=== PATIENT | female | born 1955 | race Caucasian/White ===

== ENCOUNTER 2024-02-20 06:55 | Day surgery (SDC) | payer MEDICARE, MEDICAID ==
[2024-02-20] VITALS (11 sets, daily range): BP systolic 102–124; BP diastolic 63–86; PULSE 58–84; TEMP 97.9–99.1
[~2024-02-20 06:55] MED LIST: Famotidine 20 MG TAB PO SCH; LR 1,000 ML IV SCH
[2024-02-20] MEDS ORDERED: DITROPAN 5MG TAB5 MG PO (09:02)
[2024-02-20] MEDS ORDERED: MELATONIN ER10 MG PO (09:03)
[2024-02-20] MEDS ORDERED: PRAVACHOL10 MG PO (09:04)
[2024-02-20] MEDS ORDERED: ULTRAM 50MG TAB50 MG PO (09:06)
[2024-02-20] MEDS ORDERED: PRILOSEC 20MG20 MG PO (09:06)
[2024-02-20] MEDS ORDERED: NIRAVAM0.5 MG PO (09:07)
[2024-02-20] MEDS ORDERED: LEXAPRO20 MG PO (09:07)
[2024-02-20] MEDS ORDERED: MOBIC15 MG PO (09:08)
[2024-02-20] MEDS ORDERED: Lidocaine PF 2% (20 MG/ML) 5 ML VIAL ONE (09:43)
[2024-02-20] MEDS ORDERED: Midazolam 2 MG/2 ML VIAL ONE (09:56)
[2024-02-20] MEDS ORDERED: fentaNYL 50 MCG/ML 2 ML VIAL ONE (09:56)
[2024-02-20] MEDS ORDERED: Rocuronium 50 MG/5 ML Multi-Dose VIAL ONE (12:11)
[2024-02-20] MEDS ORDERED: Oxybutynin 5 MG TAB PO SCH (14:00)
[2024-02-20] MEDS ORDERED: Ondansetron 4 MG/2 ML VIAL IV PRN ×2 (14:30→16:00)
[2024-02-20] MEDS ORDERED: hydrALAZINE 20 MG/ML 1 ML VIAL IV PRN (14:30)
[2024-02-20] MEDS ORDERED: HYDROmorphone 1 MG/1 ML SYRINGE [PACU/SDC ONLY] IV PRN (14:30)
[2024-02-20] MEDS ORDERED: fentaNYL 50 MCG/ML 1 ML SYRINGE/VIAL [PACU/SDC ONLY] IV PRN (14:30)
--- NOTE | 2024-02-20 15:30 | NUR ---
Pt arrived to the floor from [place]. Pt is alert and oriented, rating pain 5/10 at this time. Pt does report that this is tolerable for her. Pts daughter is in the room with her. Pt is wheelchair bound. She also straigh caths all the time and is occasionally incontinent. I did educate on post op orders and plan of care
[2024-02-20] MEDS ORDERED: traMADol 50 MG TAB PO SCH (16:00)
[2024-02-20] MEDS ORDERED: Morphine 4 MG/ML VIAL IV PRN (16:00)
--- NOTE | 2024-02-20 16:38 | NUR ---
Pt did straight cath herself with no issues. Scheduled medications given. Her daughter did bring in some dinner for her. I did educate on room service. Dressing to the right chest is CDI with drain to bulb suction. SCDs on bilaterally.
[2024-02-20] MEDS ORDERED: XANAX 0.5MG0.5 MG PO (17:42)
--- NOTE | 2024-02-20 18:19 | NUR ---
Pt doing well, having no issues at this time. Reports that pain is tolerable. Updated med list. Pts daughter left, call light within reach
--- NOTE | 2024-02-20 19:00 | NUR ---
RECEIVED CHANGE OF SHIFT REPORT FROM DAY SHIFT NURSE.
[2024-02-20] MEDS ORDERED: Pravastatin 20 MG TAB PO SCH (21:00)
[2024-02-21 00:50] VITALS: BP 96/61; PULSE 68; TEMP 98.6
[2024-02-21 01:00] VITALS: BP_SYST 96
[2024-02-21 03:38] VITALS: BP 103/61; PULSE 67; TEMP 98.4
[2024-02-21 04:58] VITALS: BP_SYST 103
[2024-02-21] MEDS ORDERED: Omeprazole 20 MG **** subs to Pantoprazole 40 MG PO SCH (07:00)
--- NOTE | 2024-02-21 07:30 | NUR ---
CHANGE OF SHIFT REPORT GIVEN TO DAY SHIFT NURSE, MATTHEW. PATIENT INDEPENDENT WITH BED MOBILITY AND GETTING IN AND OUT OF W/C BACK INTO BED. DENIED CHEST PAIN/SHORTNESS OF BREATH/NAUSEA THROUGHOUT THE SHIFT. INT TO LFA IN PLACE. SLEPT WELL DURING THE NIGHT WITH NO REPORTED FURTHER NEEDS REPORTED DURING THE SHIFT.
[2024-02-21 08:00] VITALS: BP 115/59; PULSE 67; TEMP 98.2
[2024-02-21 08:20] VITALS: BP_SYST 115
--- NOTE | 2024-02-21 08:20 | NUR ---
Pt. sitting up in bed. Pt. is A&OX3, assessment complete. INT to rt. forearm patent. Pt. reports pain at a 5 on pain scale, gave pain meds per orders. Pt. denies further needs, call light within reach.
[2024-02-21] MEDS ORDERED: Escitalopram 10 MG TAB PO SCH (09:00)
--- NOTE | 2024-02-21 11:45 | NUR ---
utility worker film processing met with pt to discuss discharge planning. She reports to live with a friend in [place], [place]. She sees Dr. Muniz for PCP needs and obtains medications from [facility] with no difficulties. She confirmed to have Medicare Advantage and Medicaid insurance. She is independent with ADLS and uses a wheelchair (in room) at baseline for DME. She reports to potentially have a DPOA-HC at the [facility] listing her daughter, Nehal [phone]. She voiced no further needs. Discharge Plan: home
--- NOTE | 2024-02-21 12:04 | NUR ---
D: Pen Or Pencil Assembly Machine Operator stopped by room on rounds. A: Pt was resting and content. Pt asked malt house operator to pray with her. Pt appreciated the visit. P: Pen Or Pencil Assembly Machine Operator informed pt that if she needed anything from the malt house operator area to let her nurse know. Pen Or Pencil Assembly Machine Operator will follow up as needed.
--- NOTE | 2024-02-21 14:45 | NUR ---
Pt. ready for discharge. INT discontinued from lt. forearm. Reviewed discharge paperwork and education. Educated pt. on drain care. Pt. and daughter voice understanding. Pt. escorted out by this nurse.
== END 2024-02-21 14:45 | disposition home or self-care (01) ==
LOC: SDCO 06:55 → SURG 15:44 → SDCO 02-21 14:45
DX: C50.111 Malignant neoplasm of central portion of right female breast (principal); Z17.0 Estrogen receptor positive status [ER+]; K21.9 Gastro-esophageal reflux disease without esophagitis; E78.5 Hyperlipidemia, unspecified; Z87.891 Personal history of nicotine dependence; Z79.899 Other long term (current) drug therapy
CPT/HCPCS: OP; J0665-JZ; J0690; J1170; J2250; J2704; J2795; J3010; J7120